=== PATIENT | female | born 1980 | race Hispanic/Latino ===

== ENCOUNTER 2020-08-07 07:29 | Day surgery (SDC) | payer OTHER ==
[~2020-08-07] VITALS: Ht 162.6 cm; Wt 56.4 kg
[~2020-08-07 07:29] MED LIST: ACET-907 PO; IBUP200C25 PO; LR 1,000 ML IV ONE
[2020-08-07 07:57] LABS: HEMATOCRIT 40.9 % (36.0-47.0); HEMOGLOBIN 12.7 g/dl (12.0-15.5); MEAN CORPUSCULAR HEMOGLOBIN 28.1 pg (27.0-33.0); MEAN CORPUSCULAR HGB CONC 31.1 g/dl (32.0-36.5); MEAN CORPUSCULAR VOLUME 90.5 fl (80.0-96.0); PLATELET COUNT, AUTOMATED 273 10^3/uL (150-450); RED BLOOD COUNT 4.52 10^6/uL (4.00-5.40); WHITE BLOOD COUNT 6.3 10^3/uL (4.0-10.0)
[2020-08-07] MEDS ORDERED: LIDOCAINE 2% 100MG/5ML SDV (FOR ANES.) As Ordered ONE (08:45)
[2020-08-07] MEDS ORDERED: dexameTHASONE 4 MG/ML 1ML VIAL (J1100 PER 1MG) As Ordered ONE (08:45)
[2020-08-07] MEDS ORDERED: KETOROLAC 60MG 2ML VIAL As Ordered ONE (08:45)
[2020-08-07] MEDS ORDERED: ONDANSETRON 4MG/2ML VIAL As Ordered ONE (08:45)
[2020-08-07] MEDS ORDERED: propofoL 200 MG/20 ML VIAL As Ordered ONE (08:45)
[2020-08-07 08:46] LABS: APPEARANCE, URINE HAZY (CLEAR); BACTERIA, URINE AUTO NEGATIVE (NEGATIVE); BILIRUBIN, URINE AUTO NEGATIVE (NEGATIVE); BLOOD, URINE BLOOD NEGATIVE (NEGATIVE); COLOR, URINE YELLOW (YELLOW); GLUCOSE, URINE (UA) AUTO NEGATIVE (NEGATIVE); KETONE, URINE AUTO NEGATIVE (NEGATIVE); LEUKOCYTE ESTERASE, URINE AUTO NEGATIVE (NEGATIVE); MUCUS, URINE SMALL (NEGATIVE); NITRITE, URINE AUTO NEGATIVE (NEGATIVE); PROTEIN, URINE AUTO NEGATIVE (NEGATIVE); RBC, URINE AUTO 3 /HPF (0-3); SPECIFIC GRAVITY URINE AUTO 1.021 (1.002-1.035); SQUAMOUS EPITHELIAL CELL UR AU 2 /HPF (0-6); UROBILINOGEN, URINE AUTO 0.2 mg/dL (0.0-2.0); WBC, URINE AUTO 1 /HPF (0-3)
[2020-08-07] MEDS ORDERED: fentaNYL 100 MCG/2 ML INJECTION (J3010) As Ordered ONE (08:46)
[2020-08-07] MEDS ORDERED: MIDAZOLAM INJ 2MG/2ML VIAL (J2250 PER 1MG) As Ordered ONE (08:46)
[2020-08-07] MEDS ORDERED: SILVER NITRATE APPLICATOR As Ordered ONE (10:13)
[2020-08-07] MEDS ORDERED: PERCOCET 5MG/325MG TAB PO PRN (10:45)
[2020-08-07] MEDS ORDERED: fentaNYL 100 MCG/2 ML INJECTION (J3010) IV PRN (10:45)
[2020-08-07] MEDS ORDERED: METOCLOPRAMIDE INJ 10MG/2ML VIAL (J2765 PER 1) IV PRN (10:45)
[2020-08-07] MEDS ORDERED: LR 1,000 ML IV SCH (10:45)
[2020-08-07] MEDS ORDERED: ONDANSETRON 4MG/2ML VIAL IV PRN (10:45)
[2020-08-07 11:40] VITALS: BP 107/62
[2020-08-07] MEDS ORDERED: OXYTOCIN INJ 10 UNITS/ML VIAL (J2590) As Ordered ONE (13:52)
--- NOTE | 2020-08-07 19:13 | ROOPDOC ---
[facility] Report Of Operation Report of Operation DATE OF PROCEDURE: 08/07/20 PREPROCEDURE DIAGNOSES: 1.) Abnormal uterine bleeding 2.) Cervical polyp 3.) Infertility POSTPROCEDURE DIAGNOSES: 1.) Abnormal uterine bleeding 2.) Cervical polyp 3.) Infertility PROCEDURE: 1.) Diagnostic hysteroscopy 2.) Cervical polypectomy 3.) Dilation and curettage SURGEON: Gladys Faust DO PROGRAM DEVELOPER: None ANESTHESIA: LMA ESTIMATED BLOOD LOSS: Approximately 5mL. FLUIDS: 200ml OUTPUT: 250ml urine COMPLICATIONS: None FINDINGS: 2cm cervical polyp, normal-appearing ostia bilaterally, normal uterine cavity DESCRIPTION OF PROCEDURE: The risks, benefits, indications and alternatives of the procedure were reviewed with the patient and informed consent was obtained. The patient was taken to the operating room where LMA anesthesia was obtained without difficulty. The pt was then placed in the low lithotomy position using Philip Stirrups. An exam under anesthesia was then performed and significant for a midline, mobile, 8-week sized anteverted uterus with no adnexal masses/fullness appreciated. Patient was then prepped and draped in the sterile fashion and the bladder was drained using an in-and-out catheter. A sterile speculum was placed in the patients vagina and the cervix was visualized. A large polyp was protruding from the cervical os. A single tooth tenaculum was used to grasp the anterior lip of the cervix. The cervix was then gently, serially dilated to a size 14 maureen dilator. The hysteroscope was first primed. The hysteroscope was then advanced through the endocervical canal under direct visualization. After distension of the uterus with warm saline, a systematic examination of the intrauterine cavity was performed. The tubal ost ia were visualized bilaterally. The polyp was noted to be arising from the cervix near the internal cervical os at the 8 oclock position. The hysteroscope was removed. The polyp was grasped with a ringed forcep and twisted multiple times until the polyp spontaneously was removed intact. The hysteroscope was advanced back through the cervix to confirm the stalk of the cervical polyp had been removed. Hysteroscopic fluid deficit was 50cc of normal saline. A gentle, sharp curettage was then performed. All tissue was sent to pathology for review. The single tooth tenaculum was removed with sites appreciated to be hemostatic. All instruments were then removed from the patients vagina. The patient tolerated the procedure well. At the completion of the case the sponge and needle counts were correct x 2. The patient was taken to the PACU in stable condition. GLADYS FAUST DO Aug 07, 2020 19:11
== END 2020-08-07 12:04 | disposition home or self-care (01) ==
LOC: M SDC 07:29
DX: N93.9 Abnormal uterine and vaginal bleeding, unspecified (principal); N97.9 Female infertility, unspecified; N84.1 Polyp of cervix uteri; N85.4 Malposition of uterus; N88.2 Stricture and stenosis of cervix uteri
CPT/HCPCS: 36415; 58558; 81001; 81025; 85027; 86850; 88305; J1100; J1885; J2250; J2405; J3010

== ENCOUNTER → 2022-02-24 | Outpatient (CLI) | payer OTHER ==
[~2022-02-24] MED LIST changes: -LR 1,000 ML IV ONE
== END ==
LOC: M WHC 14:17
PROVIDERS: ATTEND Family Medicine
DX: Z12.31 Encounter for screening mammogram for malignant neoplasm of breast (principal)